=== PATIENT | female | born 1975 | race African-American/Black ===

== ENCOUNTER 2019-06-25 08:35 | Inpatient (IN) | payer MEDICAID ==
[~2019-06-25] VITALS: Ht 175.3 cm; Wt 77.6 kg
[~2019-06-25 08:35] MED LIST: CHOL200059 PO; LURA80 PO
[2019-06-25] MEDS ORDERED: DIPH25 PO (09:15)
[2019-06-25] MEDS ORDERED: FLUO-191 PO (09:15)
[2019-06-25] MEDS ORDERED: LURA40 PO (09:15)
[2019-06-25] MEDS ORDERED: ARIP15TA2 PO (09:15)
[2019-06-25] MEDS ORDERED: HYDR-4031 PO (09:15)
[2019-06-25] MEDS ORDERED: LORazepam 2 MG TABLET PO ONE (10:15)
[2019-06-25] MEDS ORDERED: HALOPERIDOL 5 MG TABLET PO ONE (10:15)
[2019-06-25] MEDS ORDERED: LORazepam 2 MG TABLET PO PRN (11:00)
[2019-06-25] MEDS ORDERED: HALOPERIDOL 5 MG TABLET PO PRN (11:00)
[2019-06-25] MEDS ORDERED: ZOLPIDEM TARTRATE 10 MG TABLET PO PRN (11:00)
[2019-06-25 11:52] LABS: BASOPHILS % (AUTO) 1.3 % (0.0-2.0); EOSINOPHILS % (AUTO) 4.3 % (1.0-6.0); HEMATOCRIT 44.1 % (36-46); HEMOGLOBIN 14.2 g/dL (12.0-16.0); LYMPHOCYTES # (AUTO) 2.6 K/uL (1.0-4.8); LYMPHOCYTES % (AUTO) 28.1 % (22.0-44.0); MEAN CORPUSCULAR HEMOGLOBIN 28.1 pg (26.0-34.0); MEAN CORPUSCULAR HGB CONC 32.2 G/dL (31.0-37.0); MEAN CORPUSCULAR VOLUME 87 fL (80-100); MONOCYTES # (AUTO) 0.8 K/uL (0.1-1.0); NEUTROPHILS # (AUTO) 5.4 K/uL (1.8-7.7); NEUTROPHILS % (AUTO) 57.3 % (40.0-70.0); PLATELET COUNT (AUTO) 219 K/uL (150-450); RED BLOOD CELL COUNT(AUTO) 5.05 MIL/uL (4.00-5.20); RED CELL DISTRIBUTION WIDTH 15.2 % (11.5-14.5)
[2019-06-25 12:08] LABS: ANION GAP 11 mmol/L (8-16); CARBON DIOXIDE 26 mmol/L (22-29); CHLORIDE 103 mmol/L (98-107); CREATININE 0.77 mg/dL (0.60-1.30); GLUCOSE,RANDOM 78 mg/dL (70-110); POTASSIUM 3.8 mmol/L (3.5-5.1); SODIUM SERUM 140 mmol/L (136-145); UREA NITROGEN, BLOOD 9 mg/dL (7-18)
[2019-06-25 12:09] LABS: CALCIUM, TOTAL 8.8 mg/dL (8.8-10.5); GLOMERULAR FILTR. RATE CALC > 60 mL/min (>60)
[2019-06-25 12:13] LABS: ALANINE AMINOTRANSFERASE 20 U/L (12-78); ALBUMIN 3.5 g/dL (3.4-5.0); ALKALINE PHOSPHATASE 94 U/L (46-116); ASPARTATE AMINOTRANSFERASE 22 U/L (15-37); BILIRUBIN,TOTAL 0.4 mg/dL (0.1-1.0); CHOL/HDL RATIO 2.4 (3.9-5.7); CHOLESTEROL 171 mg/dL (131-200); HDL CHOLESTEROL 72 mg/dL (40-60); LDL CHOL (CALC.) 89 mg/dL (0-130); TOTAL PROTEIN, SERUM 7.3 g/dL (6.4-8.2); TRIGLYCERIDES 51 mg/dL (15-150)
[2019-06-25 16:29] VITALS: BP 117/90
[2019-06-25] MEDS ORDERED: GuaiFENesin/D-METHORPHAN [SUGAR-FREE] 200-20MG/10 ML SYRUP UDCUP PO PRN (17:00)
[2019-06-25] MEDS ORDERED: ALBUTEROL SULFATE HFA 90 MCG/PUFF 8 GM INHALER IH PRN (17:00)
[2019-06-25] MEDS ORDERED: DOCUSATE SODIUM 100 MG CAPSULE PO PRN (17:00)
[2019-06-25] MEDS ORDERED: ACETAMINOPHEN 325 MG TABLET PO PRN (17:00)
[2019-06-25] MEDS ORDERED: MAGNESIUM HYDROXIDE SUSPENSION 30 ML UDCUP PO PRN (17:00)
[2019-06-25] MEDS ORDERED: CloNIDine HCL 0.1 MG TABLET PO PRN (17:00)
[2019-06-25] MEDS ORDERED: LOPERAMIDE HCL 2 MG CAPSULE PO PRN (17:00)
[2019-06-25] MEDS ORDERED: MAG HYDROX/AL HYDROX/SIMETH ES 30 ML SUSPENSION UDCUP PO PRN (17:00)
[2019-06-25] MEDS ORDERED: IBUPROFEN 400 MG TABLET PO PRN (17:00)
[2019-06-25] MEDS ORDERED: PETROLATUM,WHITE 28 GM JELLY TP PRN (17:00)
[2019-06-25] MEDS ORDERED: ONDANSETRON HCL 4 MG TABLET PO PRN (17:00)
[2019-06-25] MEDS ORDERED: NICOTINE 14 MG/24 HOUR PATCH TD PRN (17:00)
[2019-06-26 07:01] VITALS: BP 127/86
[2019-06-26 16:06] VITALS: BP 115/73
[2019-06-26] MEDS: LURASIDONE HCL 40 MG TABLET PO SCH (16:50)
[2019-06-26] MEDS: SERTRALINE HCL 100 MG TABLET PO SCH (20:34)
[2019-06-27 08:16] VITALS: BP 135/78
[2019-06-27 16:18] VITALS: BP 119/70
[2019-06-27] MEDS: LURASIDONE HCL 40 MG TABLET PO SCH (16:56)
[2019-06-27] MEDS: SERTRALINE HCL 100 MG TABLET PO SCH (20:53)
[2019-06-28 06:22] VITALS: BP 117/76
[2019-06-28 08:22] VITALS: BP 155/88
[2019-06-28 10:26] VITALS: BP 115/70
[2019-06-28 16:06] VITALS: BP 111/62
[2019-06-28] MEDS: LURASIDONE HCL 40 MG TABLET PO SCH (16:51)
[2019-06-28] MEDS: SERTRALINE HCL 100 MG TABLET PO SCH (20:16)
[2019-06-29 04:47] VITALS: BP 115/72
[2019-06-29 08:20] VITALS: BP 121/69
[2019-06-29 16:26] VITALS: BP 122/86
[2019-06-29] MEDS: LURASIDONE HCL 40 MG TABLET PO SCH (16:26)
[2019-06-29] MEDS: SERTRALINE HCL 100 MG TABLET PO SCH (20:43)
[2019-06-30 06:26] VITALS: BP 111/65
[2019-06-30 08:05] VITALS: BP 121/74
[2019-06-30 16:11] VITALS: BP 120/84
[2019-06-30] MEDS: LURASIDONE HCL 40 MG TABLET PO SCH (16:32)
[2019-06-30] MEDS: SERTRALINE HCL 100 MG TABLET PO SCH (20:36)
[2019-07-01 08:12] VITALS: BP 103/56
[2019-07-01 10:30] VITALS: BP 114/80
[2019-07-01 16:30] VITALS: BP 111/71
[2019-07-01] MEDS: LURASIDONE HCL 40 MG TABLET PO SCH (16:35)
[2019-07-01] MEDS: SERTRALINE HCL 100 MG TABLET PO SCH (20:45)
[2019-07-02 06:20] VITALS: BP 105/64
[2019-07-02 08:17] VITALS: BP 118/67
[2019-07-02 16:02] VITALS: BP 120/68
[2019-07-02] MEDS: LURASIDONE HCL 40 MG TABLET PO SCH (16:21)
[2019-07-02] MEDS: SERTRALINE HCL 100 MG TABLET PO SCH (20:20)
[2019-07-03 08:20] VITALS: BP 108/68
[2019-07-03 16:05] VITALS: BP 111/75
[2019-07-03] MEDS: LURASIDONE HCL 40 MG TABLET PO SCH (17:06)
[2019-07-03] MEDS: SERTRALINE HCL 100 MG TABLET PO SCH (20:11)
[2019-07-04 00:37] VITALS: BP 106/70
[2019-07-04 08:23] VITALS: BP 127/78
[2019-07-04 16:20] VITALS: BP 123/73
[2019-07-04] MEDS ORDERED: LURASIDONE HCL 80 MG TABLET PO SCH (17:00)
[2019-07-04] MEDS: SERTRALINE HCL 100 MG TABLET PO SCH (21:00)
[2019-07-05 02:12] VITALS: BP 102/65
[2019-07-05 08:15] VITALS: BP 114/68
[2019-07-05] MEDS ORDERED: SERT100T12 PO (13:36)
[2019-07-05 16:07] VITALS: BP 120/71
[2019-07-05] MEDS ORDERED: LURASIDONE HCL 40 MG TABLET PO SCH (17:00)
[2019-07-05] MEDS: SERTRALINE HCL 100 MG TABLET PO SCH (20:16)
[2019-07-06 02:09] VITALS: BP 116/61
== END 2019-07-06 08:05 | disposition home or self-care (01) | DRG 750 ==
LOC: EMS 08:36 → B3A 11:51 → B2S 07-03 14:13
PROVIDERS: ADMIT Psychiatry & Neurology Child & Adolescent Psychiatry; ATTEND Psychiatry & Neurology Child & Adolescent Psychiatry
DX: F25.0 Schizoaffective disorder, bipolar type (principal); Z59.0 Homelessness; F10.10 Alcohol abuse, uncomplicated; F15.90 Other stimulant use, unspecified, uncomplicated; F17.200 Nicotine dependence, unspecified, uncomplicated; K21.9 Gastro-esophageal reflux disease without esophagitis; Z71.41 Alcohol abuse counseling and surveillance of alcoholic; F41.9 Anxiety disorder, unspecified; F19.10 Other psychoactive substance abuse, uncomplicated
CPT/HCPCS: G0480